=== PATIENT | female | born 1980 | race American Indian/Alaskan Native ===

== ENCOUNTER 2021-05-07 09:38 | Outpatient (CLI) | payer OTHER ==
--- NOTE | 2021-05-07 11:07 | Mammography Report ---
BILATERAL DIGITAL DIAGNOSTIC MAMMOGRAM WITH CAD CONVENTIONAL, 05/07/2021 LEFT LIMITED BREAST ULTRASOUND CLINICAL INFORMATION / INDICATION: Patient presents for evaluation of an area of palpable concern in the left axilla which she has felt since receiving the Covid vaccination in March. TECHNIQUE: Digital bilateral mammographic imaging was performed. Limited ultrasound was performed. Th is examination was interpreted with the benefit of Computer-Aided Detection (CAD) analysis. COMPARISON: Baseline FINDINGS: Breast Density: The breasts are extremely dense, which lowers the sensitivity of mammography. MAMMOGRAPHIC FINDINGS: No dominant mass, suspicious calcifications, or architectural distortion in ei ther breast. There is a mildly prominent left axillary lymph node corresponding with the site of palp able concern in the left axilla. Targeted ultrasound performed for further evaluation. ULTRASOUND FINDINGS: Targeted ultrasound evaluation was performed of the area of interest. Targeted ultrasound of the area of palpable concern in the left breast 2:00 position located 12 cm from the n ipple reveals an upper normal size lymph node measuring up to 1.5 x 0.8 x 1.0 cm, with cortical thick ness measuring up to 3 mm and preserved fatty hilum. No suspicious mass or lymphadenopathy identified . IMPRESSION: 1. A mildly prominent but morphologically normal lymph node is seen at the site of palpable concern i n the left breast. This is most likely reactive in nature, given history that this developed followin g the Covid vaccination in March. No suspicious mammographic or sonographic abnormality identified. Follow up recommendation: Unless otherwise clinically indicated, recommend patient return to routine screening mammography at age 42. BI-RADS Category 2: Benign. A "normal" or negative report should not discourage follow up or biopsy of a clinically significant f inding. A written summary of these findings will be mailed to the patient. The patient will be entered into a mammography reporting system which will generate a reminder letter for the patient's next appointmen t at the appropriate interval. According to the [employer], yearly mammograms are recommended starting at age 40 and continuing as long as a woman is in good health. Breast MRI is recommended for women with an joão roximately 20-25% or greater lifetime risk of breast cancer, including women with a strong family his tory of breast or ovarian cancer and women who have been treated for Hodgkin's disease. Signer Name: Jacinta Gibbons MD Signed: 05/07/2021 11:03 AM Workstation Name: [id number]
== END 2021-05-07 09:39 | disposition home or self-care (01) ==
LOC: MAMMO 09:38
PROVIDERS: ATTEND Family Medicine
DX: R92.8 Other abnormal and inconclusive findings on diagnostic imaging of breast (principal)
CPT/HCPCS: 77066